=== PATIENT | male | born 1980 | race Caucasian/White ===

== ENCOUNTER 2017-05-23 14:47 | Emergency (ER) | payer SELFPAY ==
[2017-05-23 14:57] VITALS: BP 149/86; PULSE 104; RESP 16; TEMP 98.6; O2SAT 98
--- NOTE | 2017-05-23 15:34 | ED PDOC ---
HPI: Skin/Bite Injury Time Seen by Provider: 05/23/17 14:59 Chief Complaint (Nursing): Abnormal Skin Integrity Chief Complaint (Provider): Rash History Per: Patient Onset/Duration Of Symptoms: Days (2 weeks) Current Symptoms Are (Timing): Still Present Quality Of Symptoms: Itching Pain Scale Rating Of: 4 Additional Complaint(s): 37 yo male, no PMH, presents to ED for evaluation of "itchiness to bilateral eyes and body x 2 weeks." Pt denies medicating for symptoms at home. No rash noted. Past Medical History Reviewed: Historical Data, Nursing Documentation, Vital Signs Vital Signs: Last Vital Signs Temp 98.6 F 05/23/17 14:54 Pulse 104 H 05/23/17 14:54 Resp 16 05/23/17 14:54 BP 149/86 05/23/17 14:54 Pulse Ox 98 05/23/17 16:13 - Medical History PMH: Diabetes - Surgical History Surgical History: No Surg Hx - Family History Family History: States: Unknown Family Hx - Home Medications Home Medications: Ambulatory Orders Medication Instructions Recorded Antipyrine/Benzocaine [Auralgan 1 - 2 drop AD Q4 #1 carmela 09/28/14 Otic Carmela] Pioglitazone [Actos] 30 mg PO DAILY 09/28/14 glyBURIDE [Glyburide] 5 mg PO DAILY 09/28/14 DiphenhydrAMINE [Benadryl] 50 mg PO Q4 PRN #30 cap 05/23/17 - Allergies Allergies/Adverse Reactions: Allergies Allergy/AdvReac Type Severity Reaction Status Date / Time No Known Allergies Allergy Verified 09/28/14 14:35 Review of Systems ROS Statement: Except As Marked, All Systems Reviewed And Found Negative Constitutional: Positive for: Other (itchiness to b/l eyes and body) Physical Exam - Reviewed Nursing Documentation Reviewed: Yes Vital Signs Reviewed: Yes - Physical Exam Appears: Positive for: Non-toxic, No Acute Distress Head Exam: Positive for: ATRAUMATIC, NORMAL INSPECTION, NORMOCEPHALIC Skin: Positive for: Normal Color, Warm, Dry. Negative for: Rash Eye Exam: Positive for: Normal appearance, EOMI, PERRL. Negative for: Nystagmus ENT: Positive for: Normal ENT Inspection. Negative for: Nasal Congestion, Pharyngeal Erythema, Tonsillar Exudate Neck: Positive for: Normal, Painless ROM, Supple Cardiovascular/Chest: Positive for: Regular Rate, Rhythm, Chest Non Tender. Negative for: Tachycardia Respiratory: Positive for: Normal Breath Sounds. Negative for: Rales, Rhonchi, Wheezing, Respiratory Distress Gastrointestinal/Abdominal: Positive for: Normal Exam, Bowel Sounds, Soft. Negative for: Tenderness, Mass, Guarding, Rebound Back: Positive for: Normal Inspection. Negative for: L CVA Tenderness, R CVA Tenderness Extremity: Positive for: Normal ROM. Negative for: Tenderness, Deformity, Swelling Neurologic/Psych: Positive for: Alert, Oriented, Gait - ECG O2 Sat by Pulse Oximetry: 98 (RA) Pulse Ox Interpretation: Normal Medical Decision Making Medical Decision Makin Initial Impression 37 year old male presenting with itchiness to b/l eye and body Initial Plan: * Benadryl 50mg PO * Reevaluation Scribe Attestation Documented by Margareth Pina acting as a scribe for Awilda Esparza PA-C. Scribe Attestation All medical record entries made by the Scribe were at my direction and personally dictated by me. I have reviewed the chart and agree that the record accurately reflects my personal performance of the history, physical exam, medical decision making, and the department course for this patient. I have also personally directed, reviewed, and agree with the discharge instructions and disposition. Disposition - Clinical Impression Clinical Impression: Itching - Patient ED Disposition Is Patient to be Admitted: No - Disposition Disposition: Routine/Home Disposition Time: 16:19 Condition: STABLE Prescriptions: DiphenhydrAMINE [Benadryl] 50 mg PO Q4 PRN #30 cap PRN Reason: Rash Instructions: Itchy Skin (ED) Forms: [facility] (Filipino) Print Language: [id number]
== END 2017-05-23 16:33 | disposition home or self-care (01) ==
LOC: H.ER 14:47
DX: H57.8 Other specified disorders of eye and adnexa (principal); E11.9 Type 2 diabetes mellitus without complications